=== PATIENT | female | born 1975 | race African-American/Black ===

== ENCOUNTER 2019-02-26 16:38 | Emergency (ER) | payer MEDICAID ==
[~2019-02-26] VITALS: Ht 167.6 cm; Wt 65.0 kg
[2019-02-26 16:42] VITALS: BP 116/52
[2019-02-26] MEDS ORDERED: IBUPROFEN 600MG TABLET PO ONE (18:15)
== END 2019-02-26 18:44 | disposition home or self-care (01) ==
LOC: ER 16:38
DX: S16.1XXA Strain of muscle, fascia and tendon at neck level, initial encounter (principal); E78.00 Pure hypercholesterolemia, unspecified; I10 Essential (primary) hypertension; V49.49XA Driver injured in collision with other motor vehicles in traffic accident, initial encounter; Y93.89 Activity, other specified; Y92.89 Other specified places as the place of occurrence of the external cause; Y99.8 Other external cause status
CPT/HCPCS: 99283